=== PATIENT | female | born 1975 | race Asian ===

== ENCOUNTER 2017-06-22 19:40 | Inpatient (IN) | payer BC ==
[~2017-06-22] VITALS: Ht 162.6 cm; Wt 75.3 kg
[2017-06-22] MEDS: LACTATED RINGERS 1,000 ML IV SCH (04:42)
[2017-06-22] MEDS ORDERED: DEXT 5%/LR + PITOCIN 20UNITS/L 1,000 ML IV SCH (20:36)
[2017-06-22] MEDS ORDERED: PNV1TABL76 MT (20:38)
[2017-06-22] MEDS ORDERED: IRON1CAP20 PO (20:38)
[2017-06-22] MEDS ORDERED: NALOXONE HCL 0.4 MG/ML 1ML VIAL IM PRN (20:45)
[2017-06-22] MEDS ORDERED: METHYLERGONOVINE MALEATE 0.2 MG/ML IM PRN (20:45)
[2017-06-22] MEDS ORDERED: CARBOPROST TROMETHAMINE 250 MCG/ML AMPUL IM PRN (20:45)
[2017-06-22] MEDS ORDERED: LIDOCAINE HCL 1% 20ML VIAL (Pyxis) INJ INFIL SCH (20:45)
[2017-06-22] MEDS: MISOPROSTOL 100MCG TABLET PO SCH (23:04)
[2017-06-22 23:41] LABS: BASOPHILS % 0.3 % (0.0-2.0); EOSINOPHILS % 1.1 % (0.0-5.0); HEMATOCRIT. 33.9 % (36.0-48.0); HEMOGLOBIN. 11.3 g/dL (12.0-16.0); LYMPHOCYTES % 16.9 % (20.0-50.0); MEAN CORPUSCULAR HEMOGLOBIN 30.3 pg (28.0-32.0); MEAN CORPUSCULAR VOLUME 90.8 fL (81.0-99.0); MEAN PLATELET VOLUME 10.5 fl (7.4-10.4); MONOCYTES % 5.4 % (2.0-8.0); NEUTROPHILS % 76.3 % (40.0-76.0); PLATELET 182 x1000/uL (130-400); RED BLOOD CELL COUNT 3.74 mill/uL (4.2-5.4); RED CELL DISTRIBUTION WIDTH 14.8 % (11.6-14.6)
[2017-06-22 23:45] LABS: CLARITY URINE CLOUDY (CLEAR); COLOR URINE YELLOW (YELLOW); GLUCOSE URINE NEGATIVE (NEGATIVE); KETONES URINE NEGATIVE (NEGATIVE); LEUKOCYTE ESTERASE URINE TRACE (NEGATIVE); NITRITE URINE NEGATIVE (NEGATIVE); OCCULT BLOOD URINE 2+ (NEGATIVE); PROTEIN URINE 2+ (NEGATIVE); SPECIFIC GRAVITY URINE 1.014 (1.005-1.030); UROBILINOGEN URINE 0.2 E.U./dL (0.2-1.0)
[2017-06-22 23:47] LABS: INR 0.9; PARTIAL THROMBOPLASTIN TIME 25.7 sec (23.4-31.0); PROTHROMBIN TIME 9.7 sec (9.4-11.6)
[2017-06-23 00:04] LABS: *AMPHETAMINES SCREEN URINE NEGATIVE (NEGATIVE); *BARBITURATES SCREEN URINE NEGATIVE (NEGATIVE); *BENZODIAZEPINES SCREEN URINE NEGATIVE (NEGATIVE); *COCAINE SCREEN URINE NEGATIVE (NEGATIVE); CANNABINOID URINE SCREEN NEGATIVE (NEGATIVE); METHADONE URINE SCREEN NEGATIVE (NEGATIVE); OPIATES URINE SCREEN NEGATIVE (NEGATIVE); PHENCYCLIDINE URINE SCREEN NEGATIVE (NEGATIVE)
[2017-06-23] MEDS: BUTORPHANOL TARTRATE 2 MG/ML VIAL IV PRN ×3 (01:43→18:03)
[2017-06-23] MEDS: MISOPROSTOL 100MCG TABLET PO SCH ×2 (03:10→07:07)
[2017-06-23] MEDS ORDERED: ONDANSETRON HCL 4MG/2ML VIAL IV PRN ×2 (03:30→10:15)
[2017-06-23] MEDS ORDERED: FENTANYL CITRATE/PF 50MCG/ML 2ML VIAL ONE (07:55)
[2017-06-23] MEDS ORDERED: BUPIVACAINE HCL/PF 0.25% (2.5MG/ML) 10ML ONE (07:56)
[2017-06-23] MEDS ORDERED: BUPIVACAINE HCL/NS/PF EPIDURAL 100 ML EP ONE (07:56)
[2017-06-23] MEDS ORDERED: INFLUENZA VIRUS VACCINE 0.5ML SYR IM ONE (08:00)
[2017-06-23] MEDS: LACTATED RINGERS 1,000 ML IV SCH ×2 (08:30→16:45)
[2017-06-23] MEDS ORDERED: DIPHENHYDRAMINE 50MG/ML VIAL IM PRN (10:15)
[2017-06-23] MEDS ORDERED: BUPIVACAINE HCL/NS/PF EPIDURAL 100 ML EP SCH (10:15)
[2017-06-23 10:57] LABS: HEPATITIS B SURFACE ANTIGEN NEGATIVE
[2017-06-23 11:01] LABS: RUBELLA IGG > 500.0 IU/mL (4.99-10)
[2017-06-23 14:05] LABS: HEMATOCRIT. 36.3 % (36.0-48.0); MEAN CORPUSCULAR VOLUME 90.9 fL (81.0-99.0); PLATELET 175 x1000/uL (130-400); RED BLOOD CELL COUNT 3.99 mill/uL (4.2-5.4)
[2017-06-23 14:12] LABS: CHLORIDE 106 mEq/L (98-107)
[2017-06-23 14:13] LABS: INR 0.9; PARTIAL THROMBOPLASTIN TIME 25.4 sec (23.4-31.0); PROTHROMBIN TIME 9.6 sec (9.4-11.6)
[2017-06-23 14:20] LABS: CARBON DIOXIDE 22 mEq/L (21-32)
[2017-06-23 15:46] LABS: PLATELET ESTIMATE NORMAL
[2017-06-23] MEDS ORDERED: GLYCERIN/WITCH HAZEL LEAF MEDICATED PAD TOP PRN (18:30)
[2017-06-23] MEDS ORDERED: DEXT 5%/LR + PITOCIN 20UNITS/L 1,000 ML IV SCH (18:30)
[2017-06-23] MEDS ORDERED: BENZOCAINE/LANOLIN/ALOE VERA SPRAY TOP PRN (18:30)
[2017-06-23] MEDS ORDERED: BISACODYL 10MG SUPP PR PRN (18:30)
[2017-06-23] MEDS ORDERED: HEMORRHOIDAL SUPP PR PRN (18:30)
[2017-06-23] MEDS ORDERED: DIPHENHYDRAMINE 25MG CAPSULE PO PRN (18:30)
[2017-06-23] MEDS ORDERED: ACETAMINOPHEN WITH CODEINE 300/30MG TABLET PO PRN (18:30)
[2017-06-23] MEDS ORDERED: LANOLIN OINT 0.25 GM TUBE TOP PRN (18:30)
[2017-06-23] MEDS ORDERED: TETANUS, DIPHTHERIA, PERTUSSIS VAC/PF 0.5ML (>7YR OLD) IM ONE (20:00)
[2017-06-23 20:30] VITALS: BP 135/85
[2017-06-23 21:50] VITALS: BP 133/80
[2017-06-23] MEDS: IBUPROFEN 400MG TABLET PO PRN (23:44)
[2017-06-23] MEDS: DOCUSATE SODIUM 100MG CAPSULE PO SCH (23:44)
[2017-06-23] MEDS: SIMETHICONE 80MG TABLET CHEW PO SCH (23:45)
[2017-06-24] VITALS (8 sets, daily range): BP systolic 110–125; BP diastolic 55–75
[2017-06-24 07:03] LABS: EOSINOPHILS % 0.4 % (0.0-5.0); HEMATOCRIT. 22.4 % (36.0-48.0); HEMOGLOBIN. 7.6 g/dL (12.0-16.0); LYMPHOCYTES % 8.4 % (20.0-50.0); MEAN CORPUSCULAR HEMOGLOBIN 30.5 pg (28.0-32.0); MEAN PLATELET VOLUME 9.9 fl (7.4-10.4); NEUTROPHILS % 86.2 % (40.0-76.0); PLATELET 150 x1000/uL (130-400); RED BLOOD CELL COUNT 2.49 mill/uL (4.2-5.4); RED CELL DISTRIBUTION WIDTH 15.1 % (11.6-14.6)
[2017-06-24] MEDS: PRENATAL VIT/FE FUMARATE/FA TABLET PO SCH (09:07)
[2017-06-24] MEDS: IBUPROFEN 400MG TABLET PO PRN (09:07)
[2017-06-24] MEDS: SIMETHICONE 80MG TABLET CHEW PO SCH ×4 (09:07→22:31)
[2017-06-24] MEDS ORDERED: FERROUS SULFATE 325MG TABLET PO SCH (12:10)
[2017-06-24] MEDS: ACETAMINOPHEN WITH CODEINE 300/30MG TABLET PO PRN ×2 (16:00→22:32)
[2017-06-24] MEDS ORDERED: MEDROXYPROGESTERONE ACETATE 150MG/ML VIAL IM NR (19:00)
[2017-06-24] MEDS: DOCUSATE SODIUM 100MG CAPSULE PO SCH (22:31)
[2017-06-25] VITALS: BP_SYST 120; BP_DIAS 70; BP_DIAS 71
[2017-06-25 02:20] LABS: BASOPHILS % 0.1 % (0.0-2.0); EOSINOPHILS % 1.4 % (0.0-5.0); HEMATOCRIT. 24.1 % (36.0-48.0); HEMOGLOBIN. 7.9 g/dL (12.0-16.0); LYMPHOCYTES % 11.7 % (20.0-50.0); MEAN CORPUSCULAR HEMOGLOBIN 29.8 pg (28.0-32.0); MEAN PLATELET VOLUME 9.8 fl (7.4-10.4); MONOCYTES % 5.4 % (2.0-8.0); NEUTROPHILS % 81.4 % (40.0-76.0); PLATELET 147 x1000/uL (130-400); RED BLOOD CELL COUNT 2.65 mill/uL (4.2-5.4); RED CELL DISTRIBUTION WIDTH 15.1 % (11.6-14.6)
[2017-06-25 08:00] VITALS: BP 107/60
[2017-06-25 09:09] VITALS: BP 120/70
[2017-06-25] MEDS: IBUPROFEN 400MG TABLET PO PRN (09:09)
[2017-06-25] MEDS: PRENATAL VIT/FE FUMARATE/FA TABLET PO SCH (09:10)
[2017-06-25] MEDS: SIMETHICONE 80MG TABLET CHEW PO SCH (09:11)
== END 2017-06-25 11:50 | disposition home or self-care (01) | DRG 775 ==
LOC: OBSVTOIN 19:40 → L&D 19:40 → 7EST PP/OB 06-23 20:15
PROVIDERS: ADMIT Specialist; ATTEND Specialist
PROC: 10D07Z6 Extraction of Products of Conception, Vacuum, Via Natural or Artificial Opening (ICD-10-PCS; principal; 2017-06-22)
PROC: 0W8NXZZ Division of Female Perineum, External Approach (ICD-10-PCS; 2017-06-22)
PROC: 00HU33Z Insertion of Infusion Device into Spinal Canal, Percutaneous Approach (ICD-10-PCS; 2017-06-22)
PROC: 30233N1 Transfusion of Nonautologous Red Blood Cells into Peripheral Vein, Percutaneous Approach (ICD-10-PCS; 2017-06-24)
DX: O75.81 Maternal exhaustion complicating labor and delivery (principal); D64.9 Anemia, unspecified; O99.02 Anemia complicating childbirth; O77.0 Labor and delivery complicated by meconium in amniotic fluid; O69.81X0 Labor and delivery complicated by cord around neck, without compression, not applicable or unspecified; Z3A.39 39 weeks gestation of pregnancy; Z37.0 Single live birth
CPT/HCPCS: 36415; 80053; 80305; 81001; 84550; 85025; 85384; 85610; 85730; 86592; 86703; 86762; 86850; 86900; 86920; 87340; J0595; J1050; J2405; J2590; J3010; J3490; J7030; J7120; P9016; A4315